=== PATIENT | male | born 1975 | race African-American/Black ===

== ENCOUNTER 2024-11-12 02:26 | Emergency (ER) | payer OTHER ==
[~2024-11-12] VITALS: Ht 180.3 cm; Wt 109.0 kg
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
[2024-11-12] MEDS ORDERED: TIZA-142 PO (04:25)
[2024-11-12] MEDS ORDERED: METH4PAK PO (04:25)
[2024-11-12 04:38] VITALS: BP 138/93; PULSE 68; RESP 16; TEMP 98.6; O2SAT 98
[2024-11-12] MEDS: KETOROLAC TROMETH 60MG/2ML VIAL IM ONE (05:06)
[2024-11-12] MEDS: HYDROcodone-ACET 10/325MG TAB PO ONE (05:07)
== END 2024-11-12 05:17 | disposition home or self-care (01) ==
LOC: ER 02:26 → EDBD 02:26 → ER 05:17
DX: S42.102A Fracture of unspecified part of scapula, left shoulder, initial encounter for closed fracture (principal); S13.4XXA Sprain of ligaments of cervical spine, initial encounter; S29.012A Strain of muscle and tendon of back wall of thorax, initial encounter; S80.12XA Contusion of left lower leg, initial encounter; S80.02XA Contusion of left knee, initial encounter; V89.2XXA Person injured in unspecified motor-vehicle accident, traffic, initial encounter; Y93.89 Activity, other specified; Y92.89 Other specified places as the place of occurrence of the external cause; Y99.8 Other external cause status
CPT/HCPCS: 72040; 72070; 73030; 73562; 96372; 99284; J1885